=== PATIENT | female | born 1985 | race Caucasian/White ===

== ENCOUNTER 2020-10-28 15:57 | Emergency (ER) | payer SELFPAY ==
[2020-10-28] MEDS ORDERED: Ibuprofen 200 MG TAB ONE (16:52)
[2020-10-28] MEDS ORDERED: Dexamethasone 4 mg/ml Vial ONE (16:52)
[2020-10-29 10:31] LABS: SARS-CoV-2 by NAA DETECTED (NotDetected)
[2020-10-29 10:32] LABS: SARS-CoV-2 MS2 Positive; SARS-CoV-2 N Gene Positive; SARS-CoV-2 orf1ab Positive
[2020-10-29 10:48] LABS: SARS-CoV-2 S Gene Positive
== END 2020-10-28 16:55 | disposition home or self-care (01) ==
LOC: ERS 15:57
DX: J01.90 Acute sinusitis, unspecified (principal)
CPT/HCPCS: 87635; 99284; J1100; U0003

== ENCOUNTER 2021-01-26 11:34 | Emergency (ER) | payer SELFPAY ==
--- NOTE | 2021-01-26 12:22 | RAD ---
XR Knee Rt 4 View STANDARD: 01/26/2021 11:43 AM CLINICAL INDICATION: History of fall with right knee pain COMPARISON: None. FINDINGS: Bones: There is sclerosis involving the posterior lateral endosteum of the distal right femoral meta diaphyseal region suspicious for a healing fibroxanthoma. No aggressive periosteal reaction is grossly evident. No acute fracture or subluxation is evident. Joints: No joint capsular distention.. Soft Tissue: Surface marker overlies the proximal foreleg on the AP and oblique images. IMPRESSION: No acute osseous abnormality. No suspicious osseous findings in the region of the surface marker placed within the proximal right f oreleg.
--- NOTE | 2021-01-26 12:24 | RAD ---
Exam: XR Hip Rt 2-3 View HISTORY: Back and right leg pain after 3 separate falls. COMPARISON: None FINDINGS: No acute fracture, dislocation, or other acute osseous abnormality is identified. IMPRESSION: No acute osseous abnormality is identified. If the patient's pain persists, follow-up imaging is advi sed
--- NOTE | 2021-01-26 12:24 | RAD ---
Chest AP view INDICATION: History of fall and chest pain COMPARISON: September 21, 2014 FINDINGS: Lungs: The lungs are clear Cardiac silhouette: The cardiomediastinal silhouette appears within normal limits. Pulmonary vasculature: Normal Pleural spaces: No pleural effusion or pneumothorax is demonstrated. Upper abdomen: There is partial visualization of spinal instrumentation of the lumbar spine. There i s vertebroplasty change at approximately L3. There is been interval placement of a dorsal column stimulator overlying the T7-T9 vertebral levels. Osseous structures: No acute osseous abnormality. Additional findings: None. IMPRESSION: No acute cardiopulmonary abnormality.
[2021-01-26] MEDS ORDERED: Ketorolac Tromethamine 30 MG/ML VIAL ONE (15:33)
--- NOTE | 2021-01-26 18:57 | RAD ---
LUMBAR SPINE THREE VIEW: 01/26/21 HISTORY: Fall with back pain. COMPARISON: None. FINDINGS: Posterior spinal fusion hardware bridging a fracture of L2 from L1-L3. The L2 fracture does contain c ement. The hardware is intact. A stimulating device projects over the back. SI joints are normal. No acute superimposed fracture of the lumbar spine. IMPRESSION: Intact posterior spinal fusion hardware traversing the L2 fracture which has maintained height and in dwelling cement. No acute superimposed fracture. POS: [facility]
== END 2021-01-26 17:35 | disposition home or self-care (01) ==
LOC: ERS 11:34
DX: S80.11XA Contusion of right lower leg, initial encounter (principal); S70.01XA Contusion of right hip, initial encounter; S30.0XXA Contusion of lower back and pelvis, initial encounter; W01.0XXA Fall on same level from slipping, tripping and stumbling without subsequent striking against object, initial encounter
CPT/HCPCS: 71045; 72100; 96372; J1885

== ENCOUNTER 2021-11-22 14:33 | Emergency (ER) | payer SELFPAY ==
[2021-11-22 14:58] LABS: Bilirubin Negative (Negative); Blood, Urine Negative (Negative); Glucose, Urine (Dipstick) Negative (Negative); Ketone, Urine Trace mg/dL (Negative); Leukocyte Negative (Negative); Nitrite Negative (Negative); Protein, Urine (Dipstick) Trace mg/dL (Neg-Trace); Urobilinogen 0.2 mg/dL (Less than 2)
[2021-11-22 15:01] LABS: Clarity Cloudy (Clear); Specific Gravity, Urine 1.022 (1.002-1.036)
[2021-11-22] MEDS ORDERED: Ketorolac Tromethamine 30 MG/ML VIAL ONE (15:02)
[2021-11-22 15:11] LABS: Bacteria/HPF 1+ HPF (None Seen); RBC/HPF 0-3 HPF (0-3)
[2021-11-22 15:22] LABS: #Eosinphils 0.3 thou/uL (0.0-0.7); #Monocytes 0.4 thou/uL (0.11-0.59); #Neutrophils 4.9 thou/uL (1.40-6.50); %Basophils 0.5 % (0.0-1.0); %Eosinophils 4.3 % (0.0-10.0); %Lymphocytes 26.6 % (21.0-51.0); %Monocytes 5.5 % (0.0-10.0); %Neutrophils 63.2 % (42.0-75.0); Hemoglobin 12.9 g/dL (12.0-16.0); Mean Corpuscular HGB CONC 34.3 g/dL (32.0-36.0); Mean Corpuscular Hemoglobin 30.8 pg (27.0-31.0); Mean Corpuscular Volume 89.7 fL (78.0-98.0); Mean Platelet Volume 7.8 fL (7.4-10.4); Platelet Count 194 thou/uL (130-400); RBC Distribution Width 12.3 % (11.5-14.5); White Blood Cell (WBC) Count 7.7 thou/uL (4.8-10.8)
[2021-11-22 15:25] LABS: BHCG - Serum Negative (NEGATIVE); Pregs Control Background? CLEAR/WHITE (CLR/WHITE); Pregs Control Bar Appear? YES (CONTROL BAR)
[2021-11-22 15:47] LABS: ALT (SGPT) 17 U/L (8-55); AST (SGOT) 16 U/L (5-34); Albumin 4.1 g/dL (3.5-5.0); Alkaline Phosphatase 61 U/L (40-110); Anion Gap 12 mmol/L (10-20); BUN (Urea Nitrogen) 10 mg/dL (7.0-18.7); Bilirubin, Total 0.2 mg/dL (0.2-1.2); Calc. Creatinine Clearance 0 mL/min (70-130); Calcium 8.9 mg/dL (7.8-10.44); Carbon Dioxide 20 mmol/L (22-29); Chloride 109 mmol/L (98-107); Glucose 93 mg/dL (70-105); Potassium 3.9 mmol/L (3.5-5.1); Protein, Total 7.1 g/dL (6.0-8.3); Sodium 137 mmol/L (136-145)
== END 2021-11-22 15:57 | disposition home or self-care (01) ==
LOC: ERS 14:33
DX: N10 Acute pyelonephritis (principal); G43.909 Migraine, unspecified, not intractable, without status migrainosus
CPT/HCPCS: 36415; 80053; 81003; 84703; 85025; 96372; 99284; J1885

== ENCOUNTER 2023-02-24 18:31 | Emergency (ER) | payer SELFPAY ==
[2023-02-24] MEDS ORDERED: CEFAZOLIN 2 GM VIAL ONE (18:36)
[2023-02-24] MEDS ORDERED: Ondansetron PF 4 MG/2 ML Vial ONE ×2 (18:40→19:51)
[2023-02-24] MEDS ORDERED: HYDROmorphone 0.5 MG/0.5 ML SYRINGE ONE ×2 (18:42→19:51)
[2023-02-24] MEDS ORDERED: Lidocaine 1% MPF 2 ML VIAL ONE (18:42)
[2023-02-24] MEDS ORDERED: Lidocaine 1% PF 5 ML VIAL ONE (18:44)
[2023-02-24] MEDS ORDERED: Boostrix 0.5 ML (Tdap) VIAL (>/=7 yrs of age) ONE (19:07)
[2023-02-24 19:09] LABS: #Eosinphils 0.2 thou/uL (0.0-0.7); #Lymphocytes 2.9 thou/uL (1.20-3.40); #Monocytes 0.4 thou/uL (0.11-0.59); #Neutrophils 4.7 thou/uL (1.40-6.50); %Basophils 0.6 % (0.0-1.0); %Eosinophils 2.5 % (0.0-10.0); %Lymphocytes 35.1 % (21.0-51.0); %Monocytes 5.1 % (0.0-10.0); %Neutrophils 56.7 % (42.0-75.0); Hemoglobin 13.7 g/dL (12.0-16.0); Mean Corpuscular HGB CONC 32.6 g/dL (32.0-36.0); Mean Corpuscular Hemoglobin 29.4 pg (27.0-31.0); Mean Corpuscular Volume 90.2 fl (78.0-98.0); Mean Platelet Volume 8.3 fL (7.4-10.4); Platelet Count 250 10x3/uL (130-400); RBC Distribution Width 12.1 % (11.5-14.5); Red Blood Cell (RBC) Count 4.65 mill/uL (4.20-5.40); White Blood Cell (WBC) Count 8.3 10x3/uL (4.8-10.8)
[2023-02-24 19:30] LABS: BHCG - Serum Negative (NEGATIVE); Pregs Control Background? CLEAR/WHITE (CLR/WHITE); Pregs Control Bar Appear? YES (CONTROL BAR)
[2023-02-24 19:48] LABS: ALT (SGPT) 16 U/L (8-55); AST (SGOT) 14 U/L (5-34); Albumin 4.4 g/dL (3.5-5.0); Alkaline Phosphatase 63 U/L (40-110); Anion Gap 13 mmol/L (10-20); BUN (Urea Nitrogen) 7 mg/dL (7.0-18.7); Bilirubin, Total 0.3 mg/dL (0.2-1.2); Calc. Creatinine Clearance 0 mL/min (70-130); Calcium 9.9 mg/dL (7.8-10.44); Carbon Dioxide 23 mmol/L (22-29); Chloride 107 mmol/L (98-107); Estimated GFR 87; Globulin 3.1 g/dL (2.4-3.5); Glucose 112 mg/dL (70-105); Protein, Total 7.5 g/dL (6.0-8.3); Sodium 140 mmol/L (136-145)
== END 2023-02-24 20:24 | disposition short-term general hospital (02) ==
LOC: ERS 18:31
DX: S62.612B Displaced fracture of proximal phalanx of right middle finger, initial encounter for open fracture (principal); W34.00XA Accidental discharge from unspecified firearms or gun, initial encounter; Z23 Encounter for immunization
CPT/HCPCS: 80053; 84703; 85025; 90715; G0390; J1170; J2405